=== PATIENT | female | born 1940 | race African-American/Black ===

== ENCOUNTER 2025-06-10 09:06 | Outpatient (CLI) | payer MEDICARE, MEDICAID | END 2025-06-10 09:07 | disposition home or self-care (01) | LOC: CSHMAMMO 09:06 | PROVIDERS: ATTEND Internal Medicine | DX: Z08 Encounter for follow-up examination after completed treatment for malignant neoplasm (principal); R92.8 Other abnormal and inconclusive findings on diagnostic imaging of breast; D63.1 Anemia in chronic kidney disease; N18.4 Chronic kidney disease, stage 4 (severe); D50.9 Iron deficiency anemia, unspecified; N63.11 Unspecified lump in the right breast, upper outer quadrant; N63.15 Unspecified lump in the right breast, overlapping quadrants; Z85.3 Personal history of malignant neoplasm of breast | CPT/HCPCS: 19083; 19084; 76642; 77065; A4648 ×2; G0279; 88305; 88341; 88342; 88361 ==